=== PATIENT | female | born 1970 | race Caucasian/White ===

== ENCOUNTER → 2017-05-15 | Outpatient (CLI) | payer BC ==
--- NOTE | 2017-05-16 09:05 | MM ---
Reason for exam: screening (asymptomatic). Last mammogram was performed 1 year and 3 months ago. History: Patient is nulliparous. Family history of breast cancer in mother at age 70. Took hormonal contraceptives for 6 months beginning at age 18. Physical Findings: A clinical breast exam by your physician is recommended on an annual basis and results should be correlated with mammographic findings. MG Screening Mammo w CAD Bilateral CC and MLO view(s) were taken. Prior study comparison: February 01, 2016, bilateral MG screening mammo w CAD. November 05, 2014, bilateral MG screening mammo w CAD. The breast tissue is heterogeneously dense. This may lower the sensitivity of mammography. Layering calcifications. There is chronic nodularity bilaterally. There is no dominant lesion. No significant changes when compared with prior studies. ASSESSMENT: Benign, BI-RAD 2 RECOMMENDATION: Routine screening mammogram of both breasts in 1 year.
== END | disposition home or self-care (01) ==
LOC: RADMAMWWP 07:40
PROVIDERS: ATTEND Family Medicine
DX: Z12.31 Encounter for screening mammogram for malignant neoplasm of breast (principal)
CPT/HCPCS: 77067

== ENCOUNTER → 2018-09-03 | Outpatient (CLI) | payer BC ==
--- NOTE | 2018-09-03 14:28 | MM ---
Reason for exam: screening (asymptomatic). Last mammogram was performed 1 year and 4 months ago. History: Patient is nulliparous. Family history of breast cancer in mother at age 70. Took hormonal contraceptives for 6 months beginning at age 18. Physical Findings: A clinical breast exam by your physician is recommended on an annual basis and results should be correlated with mammographic findings. MG 3D Screening Mammo W/Cad Bilateral CC and MLO view(s) were taken. Prior study comparison: May 15, 2017, bilateral MG screening mammo w CAD. February 01, 2016, bilateral MG screening mammo w CAD. The breast tissue is heterogeneously dense. This may lower the sensitivity of mammography. Finding #1: There is a 15 mm equal density (isodense) mass in the upper outer quadrant, posterior position of the right breast. Finding #2: There are typically benign calcifications in both breasts. ASSESSMENT: Incomplete: need additional imaging evaluation, BI-RAD 0 RECOMMENDATION: Special view mammogram of the right breast. If lesion persists on supplemental views, image directed ultrasound is recommended. [facility] will attempt to contact patient to return for supplemental views and ultrasound if indicated.
== END | disposition home or self-care (01) ==
LOC: RADMAMWWP 07:35
PROVIDERS: ATTEND Family Medicine
DX: Z12.31 Encounter for screening mammogram for malignant neoplasm of breast (principal)
CPT/HCPCS: 77063; 77067

== ENCOUNTER → 2018-09-11 | Outpatient (CLI) | payer BC ==
--- NOTE | 2018-09-11 11:43 | MM ---
Reason for exam: additional evaluation requested from abnormal screening. Last mammogram was performed less than 1 month ago. History: Patient is nulliparous. Family history of breast cancer in mother at age 70. Took hormonal contraceptives for 6 months beginning at age 18. Physical Findings: Nurse did not find any significant physical abnormalities on exam. MG Work Up Mamm w CAD RT Spot compression CC, spot compression MLO, and ML view(s) were taken of the right breast. Prior study comparison: September 03, 2018, bilateral MG 3d screening mammo w/cad. May 15, 2017, bilateral MG screening mammo w CAD. The breast tissue is heterogeneously dense. This may lower the sensitivity of mammography. There are round, oval, circumscribed masses in the upper outer quadrant at middle and posterior depth x 3 measuring up to 1.8cm. These results were verbally communicated with the patient and result sheet given to the patient on 09/11/18. ASSESSMENT: Incomplete: need additional imaging evaluation, BI-RAD 0 RECOMMENDATION: Ultrasound of the right breast. (upper outer quadrant)
--- NOTE | 2018-09-11 11:47 | USB ---
Reason for exam: additional evaluation requested from abnormal screening. History: Patient is nulliparous. Family history of breast cancer in mother at age 70. Took hormonal contraceptives for 6 months beginning at age 18. US Breast Workup Limited RT Right limited breast ultrasound including focal area of concern, retroareolar and axilla demonstrates a 1.0 x 0.3 x 0.7cm cystic lesion at 11 o'clock, a 0.6 x 0.3 x 0.5cm cystic lesion at 11 o'clock, a 1.1 x 0.7 x 1.8cm cystic lesion at 11 o'clock, a 0.5 x 0.3 x 0.5cm cystic lesion at the axilla tail and a 1.0 x 0.3 x 0.6cm mixed lesion at 10 o'clock, complicated cyst with increase through transmission. Findings correlate with mammographic findings. These results were verbally communicated with the patient and result sheet given to the patient on 09/11/18. ASSESSMENT: Benign, BI-RAD 2 RECOMMENDATION: Return to routine screening mammogram schedule for both breasts.
== END | disposition home or self-care (01) ==
LOC: RADMAMWWP 08:58
PROVIDERS: ATTEND Family Medicine
DX: R92.8 Other abnormal and inconclusive findings on diagnostic imaging of breast (principal)
CPT/HCPCS: 77065

== ENCOUNTER → 2020-06-02 | Outpatient (CLI) | payer BC ==
--- NOTE | 2020-06-03 08:08 | BD ---
EXAMINATION TYPE: Axial Bone Density DATE OF EXAM: 06/02/2020 COMPARISON: NONE CLINICAL HISTORY: Height: 5 FT 5 IN Weight: 155 FRAX RISK QUESTIONS: Alcohol (3 or more units per day): NO Family History (Parent hip fracture): NO Glucocorticoids (More than 3mos): NO (Ex: prednisone, prednisolone, methylprednisolone, dexamethasone, and hydrocortisone). History of Fracture in Adulthood: NO Secondary Osteoporosis: 1. Type 1 Diabetes: NO 2. Hyperthyroidism: NO 3. Menopause before 45: NO 4. Malnutrition: NO 5. Chronic liver disease: NO Rheumatoid Arthritis: NO Current Tobacco Use: NO RISK FACTORS HISTORY OF: Surgery to Spine/Hip(right/left)/Wrist (right/left): NO Family History of Osteoporosis: YES Active: YES Diet low in dairy products/other sources of calcium: NO Postmenopausal woman: AGE 50 Take estrogen and/or progesterone medications: NONE Lost more than 2 inches in height since high school: NO MEDICATIONS: Thyroid Medications: YES Which medication: LEVOTHYROXINE How Lon YEARS Additional Medications: LEVOTHYROXINE, Additional History: EXAM MEASUREMENTS: Bone mineral densitometry was performed using the [employer] System. Bone mineral density as measured about the Lumbar spine is: ----- L1-L4(G/cm2): 1.097 T Score Values are as follows: ----- L2: -1.1 ----- L3: -0.5 ----- L4: -1.0 ----- L1-L4: -0.7 Bone mineral density has: DECREASED -6.4 % since study of: 2010 Bone mineral density about the R hip (g/cm2): 0.841 Bone mineral density about the L hip (g/cm2): 0.844 T Score values are as follows: -----R Neck: -1.4 -----L Neck: -1.4 -----R Total: -1.3 -----L Total: -1.1 Bone mineral density has: DECREASED -11.9 % since study of: 2010 IMPRESSION: Osteopenia (T Score between -2.5 and -1). There is slightly increased risk of fracture and the patient may be considered for treatment. Re-Screen 2-5 years. NOTE: T-SCORE=SD OF THE YOUNG ADULT MEAN.
--- NOTE | 2020-06-06 11:07 | MM ---
Reason for exam: screening (asymptomatic). Last mammogram was performed 1 year and 9 months ago. History: Patient is nulliparous. Family history of breast cancer in mother at age 70. Took hormonal contraceptives for 6 months beginning at age 18. Physical Findings: A clinical breast exam by your physician is recommended on an annual basis and results should be correlated with mammographic findings. MG 3D Screening Mammo W/Cad Bilateral CC and MLO view(s) were taken. Prior study comparison: September 11, 2018, right breast MG work up mamm w CAD RT. September 03, 2018, bilateral MG 3d screening mammo w/cad. The breast tissue is heterogeneously dense. This may lower the sensitivity of mammography. Finding: There are new round, grouped/clustered calcifications in the upper outer quadrant, posterior position of the left breast 8cm from the nipple. New finding since September 11, 2018 and September 03, 2018. ASSESSMENT: Incomplete: need additional imaging evaluation, BI-RAD 0 RECOMMENDATION: Special view mammogram of the left breast. [facility] will attempt to contact patient to return for supplemental views.
== END ==
LOC: RADMAMWWP 08:17
PROVIDERS: ATTEND Family Medicine
DX: M85.80 Other specified disorders of bone density and structure, unspecified site (principal); Z80.3 Family history of malignant neoplasm of breast; R92.0 Mammographic microcalcification found on diagnostic imaging of breast
CPT/HCPCS: 77063; 77067; 77080

== ENCOUNTER → 2020-06-14 | Outpatient (CLI) | payer BC ==
--- NOTE | 2020-06-15 11:04 | MM ---
Reason for exam: additional evaluation requested from abnormal screening. Last mammogram was performed less than 1 month ago. History: Patient is nulliparous. Family history of breast cancer in mother at age 70. Took hormonal contraceptives for 6 months beginning at age 18. Physical Findings: Nurse did not find any significant physical abnormalities on exam. MG 3D Work Up W/Cad LT CC with magnification, LM with magnification, and LM view(s) were taken of the left breast. Prior study comparison: June 02, 2020, bilateral MG 3d screening mammo w/cad. September 03, 2018, bilateral MG 3d screening mammo w/cad. The breast tissue is heterogeneously dense. This may lower the sensitivity of mammography. Finding: There are grouped/clustered, fine calcifications in the upper outer quadrant of the left breast 8cm from the nipple. New finding since September 03, 2018. These results were verbally communicated with the patient and result sheet given to the patient on 06/14/20. ASSESSMENT: Suspicious, BI-RAD 4 RECOMMENDATION: Stereotactic core biopsy of the left breast. Called Dr. Alcaraz's office with mammographic findings and has scheduled an appointment for the patient for 08/03/20 at 4:[address] Yanez. Biopsy scheduled for 07/04/20 at 10:00. PRELIMINARY REPORT CALLED AND FAXED TO DR. YANEZ ON 06/15/20.
== END ==
LOC: RADMAMWWP 13:32
PROVIDERS: ATTEND Family Medicine
DX: R92.8 Other abnormal and inconclusive findings on diagnostic imaging of breast (principal)
CPT/HCPCS: 77061; 77065

== ENCOUNTER → 2020-07-11 | Day surgery (SDC) | payer BC ==
[2020-07-11 09:19] VITALS: BP 130/80; PULSE 81; RESP 16; TEMP 97.6
--- NOTE | 2020-07-11 11:49 | MM ---
Stereotactic Mammotome core biopsy left breast. HISTORY: Microcalcifications The Microcalcifications in question within the left breast were targeted by the undersigned. Procedu re was performed by the undersigned. Informed consent was obtained and all of the patients questions were answered. The standard sterile technique was utilized and appropriate local anesthesia was obta ined with 1% lidocaine. Mammotome probe was advanced and multiple core samples were obtained and sen t to pathology for interpretation. Microclip marker was deployed at the site of biopsy. Post proced ural mammogram demonstrates appropriate deployment of radiopaque clip marker. The patient tolerated the procedure well and left the department in stable condition. Pathology results are pending. IMPRESSION: Successful stereotactic core biopsy left breast with pathology results pending.
== END ==
LOC: RADMAMWWP 09:03
PROVIDERS: ATTEND Surgery
DX: R92.8 Other abnormal and inconclusive findings on diagnostic imaging of breast (principal); N62 Hypertrophy of breast
CPT/HCPCS: 88305; 88342; 88341; 19081; A4648; J2001

== ENCOUNTER 2020-07-28 10:37 | Day surgery (SDC) | payer BC ==
[2020-07-26 08:20] VITALS: BMI 25.7
[~2020-07-28 10:37] MED LIST: ACETAMINOPHEN TAB 500 MG TAB PO PRN; HEPARIN SODIUM,PORCINE/PF 5,000 UNIT/0.5 ML SYRINGE SQ PRN; Pre Op ABX Message 1 EACH MISC MISCELLANE ONE
[2020-07-28] MEDS ORDERED: ONDANSETRON 4 MG/2 ML VIAL ONE (11:16)
[2020-07-28] MEDS ORDERED: ALPRAZolam 0.5 MG TAB ONE (11:16)
[2020-07-28] MEDS ORDERED: ALPRAZolam 0.5 MG TAB PO ONE (11:18)
[2020-07-28] MEDS ORDERED: LACTATED RINGERS 1,000 ML IV ONE (11:18)
[2020-07-28] MEDS ORDERED: LIDOCAINE 1% INJ 10MG/ML (20 ML MDV) SQ ONE (12:00)
[2020-07-28] MEDS ORDERED: DEXAMETHASONE SOD PHOSPHATE 4 MG/ML 1 ML VIAL IV ONE (12:37)
[2020-07-28] MEDS ORDERED: MIDAZOLAM 2 MG/2 ML VIAL ONE (12:56)
[2020-07-28] MEDS ORDERED: ePHEDrine SULFATE/0.9% NACL/PF 50 MG/5 ML SYRINGE IV ONE (12:56)
[2020-07-28] MEDS ORDERED: PROPOFOL 10 MG/ML 20 ML VIAL IV ONE (12:56)
[2020-07-28] MEDS ORDERED: LIDOCAINE 1% INJ 10MG/ML (20 ML MDV) ONE (12:56)
[2020-07-28] MEDS ORDERED: fentaNYL (PF) 50 MCG/ML 2 ML AMP ONE (12:56)
[2020-07-28] MEDS ORDERED: BUPIVACAIN-EPI 0.5%-1:200,000 30 ML VIAL SQ ONE ×2 (12:58)
[2020-07-28] MEDS ORDERED: NALOXONE 0.4 MG/ML 1 ML VIAL IV PRN (13:56)
[2020-07-28] MEDS ORDERED: HYDROcodone/APAP 5-325MG 1 EACH TAB PO PRN (13:56)
--- NOTE | 2020-07-28 13:59 | P.OP ---
Date of Procedure: 07/28/20 Procedure(s) Performed: PREOPERATIVE DIAGNOSIS: Abnormal left mammogram POSTOPERATIVE DIAGNOSIS: Same PROCEDURE: Left Breast wire localization biopsy SURGEON: Renata EBL: Minimal ANESTHESIA: Sedation plus local COMPLICATIONS: None OPERATIVE PROCEDURE: Patient was placed on the operating room table in the sup ine position. The patient's breast was prepped and draped in usual sterile fashion. A curvilinear incision was made adjacent to the wire entrance site. I followed the wire down into the breast tissue. The breast tissue around the tip of the wire was fully excised using electrocautery. The specimen was painted the appropriate 6 colors. The specimen was sent for specimen radiogram. The clip was present within the specimen. The subcutaneous tissues were inspected. No bleeding was seen. The subcutaneous tissues were closed using 3-0 Vicryl sutures. The skin was closed using a running 4-0 Monocryl stitch. Skin glue and sterile dressings were applied. DISPOSITION: Stable to recovery room
[2020-07-28 14:13] VITALS: TEMP 97.3
[2020-07-28] MEDS ORDERED: SODIUM CHLORIDE 0.9% 1,000 ML IV ONE (14:32)
[2020-07-28 14:51] VITALS: RESP 18
[2020-07-28 14:59] VITALS: BP 120/75; PULSE 82
--- NOTE | 2020-07-29 15:18 | MM ---
EXAMINATION TYPE: MG pre op needle loc LT, MG surgical specimen LT DATE OF EXAM: 07/28/2020 12:29 PM COMPARISON: NONE HISTORY: ABNORMAL MAMM R92.8 Informed consent was obtained and all the patient's questions were answered. The clip in question was localized mammographically. The standard sterile technique was utilized, as well as appropriate local anesthesia with 1% Lidocaine. Localization needle followed by placement of a guidewire was performed under mammographic guidance. Verification images demonstrate appropriate deployment of the guidewire. The patient tolerated the procedure well and left the department in stable condition. Specimen radiograph demonstrates the clip in question to reside within the specimen. IMPRESSION: Successful needle localization and open biopsy left breast with pathology results pending . Pathology Results: High Risk LEFT BREAST, LUMPECTOMY: Focal residual flat epithelial atypia (see note). Biopsy site change with fibrosis, acute and chronic inflammation and fat necrosis. Fibrocystic change, columnar cell change and focal microcalcification present. Negative for diagnostic in situ or invasive carcinoma. All margins benign and negative for lesion. Recommendation Follow up mammogram of the left breast in 6 months. STACIE
== END 2020-07-28 15:10 | disposition home or self-care (01) ==
LOC: OR 10:37
PROVIDERS: ATTEND Surgery
DX: N60.32 Fibrosclerosis of left breast (principal); N61.0 Mastitis without abscess; N64.1 Fat necrosis of breast; N60.12 Diffuse cystic mastopathy of left breast; R92.0 Mammographic microcalcification found on diagnostic imaging of breast; E07.9 Disorder of thyroid, unspecified; Z98.890 Other specified postprocedural states; Z80.3 Family history of malignant neoplasm of breast; Z80.0 Family history of malignant neoplasm of digestive organs; Z79.890 Hormone replacement therapy
CPT/HCPCS: 81025; 88307; 76098; 19281; 19125; J2250; J1100; J2405; J2001; J3010; J2704; J1644

== ENCOUNTER → 2020-12-05 | Outpatient (CLI) | payer BC | END | disposition home or self-care (01) | LOC: RADMAMWWP 08:06 | PROVIDERS: ATTEND Surgery | DX: Z53.9 Procedure and treatment not carried out, unspecified reason (principal) ==

== ENCOUNTER → 2021-02-15 | Outpatient (CLI) | payer BC ==
--- NOTE | 2021-02-16 10:19 | MM ---
Reason for exam: follow-up at short interval from prior study. Last mammogram was performed 8 months ago. History: Patient has history of breast cancer at age 50, has history of high-risk lesion on a previous biopsy at age 50, and is nulliparous. Family history of breast cancer in mother at age 70. High risk MG pre op needle loc LT of the left breast, July 28, 2020. Lumpectomy of the left breast, July 28, 2020. Malignant MG stereo VAD BX LT of the left breast, July 11, 2020. Took hormonal contraceptives for 6 months beginning at age 18. Physical Findings: Nurse did not find any significant physical abnormalities on exam. MG 3D Diag Mammo W/Cad LT CC and MLO view(s) were taken of the left breast. Prior study comparison: June 02, 2020, bilateral MG 3d screening mammo w/cad. September 03, 2018, bilateral MG 3d screening mammo w/cad. The breast tissue is heterogeneously dense. This may lower the sensitivity of mammography. These results were verbally communicated with the patient and result sheet given to the patient on 02/15/21. ASSESSMENT: Probably benign, BI-RAD 3 RECOMMENDATION: Follow-up diagnostic mammogram of both breasts in 4 months. Back on schedule for May 2021.
== END | disposition home or self-care (01) ==
LOC: RADMAMWWP 10:13
PROVIDERS: ATTEND Surgery
DX: R92.2 Inconclusive mammogram (principal); Z85.3 Personal history of malignant neoplasm of breast; Z80.3 Family history of malignant neoplasm of breast
CPT/HCPCS: 77061; 77065

== ENCOUNTER 2021-03-04 08:17 | Emergency (ER) | payer BC ==
[2021-03-04 08:26] VITALS: RESP 18; TEMP 97.9
[2021-03-04] MEDS ORDERED: DIPH,PERTUS(ACELL)TETVAC-LF 0.5 ML VIAL IM ONE (08:37)
[2021-03-04] MEDS ORDERED: GELATIN SPONGE,ABSORB (SMALL) 1 EACH SPONGE TOPICAL STA (08:40)
--- NOTE | 2021-03-04 09:10 | ED ---
Upper Extremity HPI - General Chief Complaint: Extremity Injury, Upper Stated Complaint: Finger lac Time Seen by Provider: 03/04/21 08:28 Source: patient, RN notes reviewed Mode of arrival: ambulatory Limitations: no limitations - History of Present Illness Initial Comments: This a 51-year-old female presents emergency with chief complaint laceration to right hand or digit. 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 Patient states that she is unsure when her last tetanus was. She complains of mild discomfort, bleeding and distal portion her finger she states there is portion that is missing. Patient has no paresthesias patient offers no complaints. - Related Data Home Medications Medication Instructions Recorded Confirmed Cholecalciferol (Vitamin D3) 125 mcg PO DAILY 06/29/20 07/26/20 [Vitamin D3 (5000 Iu)] Levothyroxine Sodium 125 mcg PO DAILY 06/29/20 07/26/20 Multivitamin/Iron/Folic Acid 1 tablet PO DAILY 06/29/20 07/26/20 [Centrum Women Tablet] Vitamin B Complex 1 tablet PO DAILY 06/29/20 07/26/20 Previous Rx's Medication Instructions Recorded oxyCODONE HCL [OxyIR] 5 mg PO Q6H PRN 3 Days #5 tab 07/28/20 Cephalexin [Keflex] 500 mg PO Q8HR #21 cap 03/04/21 Allergies Allergy/AdvReac Type Severity Reaction Status Date / Time No Known Allergies Allergy Verified 03/04/21 08:26 Review of Systems ROS Statement: Those systems with pertinent positive or pertinent negative responses have been documented in the HPI. ROS Other: All systems not noted in ROS Statement are negative. Past Medical History Past Medical History: Thyroid Disorder Additional Past Medical History / Comment(s): LUMP IN LEFT BREAST History of Any Multi-Drug Resistant Organisms: None Reported Past Surgical History: Breast Surgery Additional Past Surgical History / Comment(s): tongue biopsy 2010. LT BREAST CORE BX Past Anesthesia/Blood Transfusion Reactions: No Reported Reaction Past Psychological History: No Psychological Hx Reported Smoking Status: Never smoker Past Alcohol Use History: None Reported Past Drug Use History: None Reported - Past Family History Mother Family Medical History: Cancer Additional Family Medical History / Comment(s): breast cancer Brother(s) Family Medical History: Cancer Additional Family Medical History / Comment(s): tongue General Exam Limitations: no limitations General appearance: alert, in no apparent distress Head exam: Present: atraumatic, normocephalic, normal inspection Respiratory exam: Present: normal lung sounds bilaterally. Absent: respiratory distress, wheezes, rales, rhonchi, stridor Cardiovascular Exam: Present: regular rate, normal rhythm, normal heart sounds. Absent: systolic murmur, diastolic murmur, rubs, gallop, clicks Extremities exam: Present: other (Right hand third digit there is a laceration involving the distal portion through the nail finger there is mild bleeding, patient's full range of motion of the digit.) Course Vital Signs 03/04/21 08:23 Temperature 97.9 F Pulse Rate 72 Respiratory 18 Rate Blood Pressure 131/90 O2 Sat by Pulse 100 Oximetry Medical Decision Making - Medical Decision Making Finger was thoroughly cleaned, x-ray shows no acute fracture patient did have Gelfoam applied along with tube gauze. Patient has skin avulsion with no closure at this time. She will follow up with hand surgery for recheck and possible revision. Disposition Clinical Impression: Laceration of finger, right, Avulsion of skin of finger Disposition: HOME SELF-CARE Condition: Stable Instructions (If sedation given, give patient instructions): Skin Avulsion (ED) Additional Instructions: Please return to the Emergency Department if symptoms worsen or any other c oncerns. Please leave bandage on until follow-up with orthopedics. Prescriptions: Cephalexin [Keflex] 500 mg PO Q8HR #21 cap Is patient prescribed a controlled substance at d/c from ED?: No Referrals: Noe Alcaraz DO [Primary Care Provider] - 1-2 days Time of Disposition: 09:09
--- NOTE | 2021-03-04 09:27 | XR ---
Right finger. HISTORY: Laceration COMPARISON: None. TECHNIQUE: 3 views the right middle finger were obtained. FINDINGS: There is no fracture, dislocation intraosseous or intra-articular abnormality. There is no radiopaque foreign body or abnormal soft tissue calcification. IMPRESSION: No significant abnormality seen.
[2021-03-04] MEDS ORDERED: ACET/COD 300 MG/30 MG STARTER PACK 6 TAB BTL PO STA (09:48)
[2021-03-04 09:55] VITALS: BP 134/86; PULSE 74
== END 2021-03-04 09:54 | disposition home or self-care (01) ==
LOC: EC 08:17
DX: S61.212A Laceration without foreign body of right middle finger without damage to nail, initial encounter (principal); E07.9 Disorder of thyroid, unspecified; Z79.890 Hormone replacement therapy; Z23 Encounter for immunization; W23.0XXA Caught, crushed, jammed, or pinched between moving objects, initial encounter; Y93.G9 Activity, other involving cooking and grilling
CPT/HCPCS: 90471; 90715; 99283

== ENCOUNTER → 2021-06-05 | Outpatient (CLI) | payer BC ==
--- NOTE | 2021-06-07 13:56 | MM ---
Reason for exam: additional evaluation requested from prior study. Last mammogram was performed 4 months ago. History: Patient is postmenopausal, has history of high-risk lesion on a previous biopsy at age 50, and is nulliparous. Family history of breast cancer in mother at age 70. High risk MG pre op needle loc LT of the left breast, July 28, 2020. Lumpectomy of the left breast, July 28, 2020. High risk MG stereo VAD BX LT of the left breast, July 11, 2020. Took hormonal contraceptives for 6 months beginning at age 18. Physical Findings: A clinical breast exam by your physician is recommended on an annual basis and results should be correlated with mammographic findings. MG 3D Diag Mammo W/Cad GEOFFREY Bilateral CC and MLO view(s) were taken. Prior study comparison: February 15, 2021, left breast MG 3d diag mammo w/cad LT. June 14, 2020, left breast MG 3d work up w/cad LT. June 02, 2020, bilateral MG 3d screening mammo w/cad. September 03, 2018, bilateral MG 3d screening mammo w/cad. May 15, 2017, bilateral MG screening mammo w CAD. The breast tissue is heterogeneously dense. This may lower the sensitivity of mammography. Post surgical change upper outer quadrant left breast, 6 month follow up recommended. Asymmetric densities right upper outer quadrant with some underlying nodularity on 3D images. This seems to have been present on priors but slightly more pronounced now. ASSESSMENT: Incomplete: need additional imaging evaluation, BI-RAD 0 RECOMMENDATION: Ultrasound of the right breast. (upper outer quadrant)
--- NOTE | 2021-06-07 13:58 | USB ---
Reason for exam: additional evaluation requested from abnormal screening. History: Patient is postmenopausal, has history of high-risk lesion on a previous biopsy at age 50, and is nulliparous. Family history of breast cancer in mother at age 70. High risk MG pre op needle loc LT of the left breast, July 28, 2020. Lumpectomy of the left breast, July 28, 2020. High risk MG stereo VAD BX LT of the left breast, July 11, 2020. Took hormonal contraceptives for 6 months beginning at age 18. Physical Findings: A clinical breast exam by your physician is recommended on an annual basis and results should be correlated with mammographic findings. US Breast Limited RT Right limited breast ultrasound including focal area of concern, retroareolar and axilla demonstrates a 0.8 x 0.5 x 0.2cm oval, cystic lesion at 10 o'clock, flattened cyst surrounded by dense tissue and a 0.7 x 0.8 x 0.5cm oval, lobular cyst at 11 o'clock with some internal artifact or debris. Scanned 9-12 o'clock. ASSESSMENT: Probably benign, BI-RAD 3 RECOMMENDATION: Follow-up diagnostic mammogram of both breasts in 6 months.
== END | disposition home or self-care (01) ==
LOC: RADMAMWWP 12:57
PROVIDERS: ATTEND Surgery
DX: R92.8 Other abnormal and inconclusive findings on diagnostic imaging of breast (principal)
CPT/HCPCS: 77062; 77066

== ENCOUNTER → 2023-08-28 | Outpatient (CLI) | payer BC ==
--- NOTE | 2023-09-03 11:57 | MM ---
Reason for Exam: Screening (asymptomatic). Last mammogram was performed 2 year(s) and 3 month(s) ago. Patient History: Menarche at age 12. Patient has no children. Postmenopausal. Hormonal Contraceptives for 6 months starting at age 18. 07/28/2020, Lumpectomy on the Left side. 07/28/2020, High risk Core Biopsy on the left side. 07/11/2020, High risk Core Biopsy on the left side. Mother had breast cancer, age 70. Risk Values: Eliza 5 year model risk: 3.2%. NCI Lifetime model risk: 23.0%. Prior Study Comparison: 06/14/2020 Left Diagnostic Mammogram, [facility]. 02/15/2021 Left Diagnostic Mammogram, [facility]. 06/05/2021 Bilateral Diagnostic Mammogram, [facility]. Tissue Density: The breasts are heterogeneously dense, which may obscure small masses. Findings: Analyzed By CAD. Left breast surgical clips. Right breast: There is no suspicious group of microcalcifications or new suspicious mass. Left breast: There is no suspicious group of microcalcifications or new suspicious mass. Overall Assessment: Benign, BI-RAD 2 Management: Screening Mammogram of both breasts in [address] [facility] will attempt to contact patient to return for supplemental views and ultrasound if indicated. Patient should continue monthly self-breast exams. A clinical breast exam by your physician is recommended on an annual basis. This exam should not preclude additional follow-up of suspicious palpable abnormalities. Note on Eliza scores and lifetime risk: 1. A Eliza score greater than 3% is considered moderate risk. If this is the case, consider specialist referral to assess eligibility for a risk reducing agent. 2. If overall lifetime risk for the development of breast cancer is 20% or higher, the patient may qualify for future screening with alternating mammogram and breast MRI. Electronically signed and approved by: Noe William DO
== END | disposition home or self-care (01) ==
LOC: RADMAMWWP 13:53
PROVIDERS: ATTEND Family Medicine
DX: Z12.31 Encounter for screening mammogram for malignant neoplasm of breast (principal); Z80.3 Family history of malignant neoplasm of breast; Z78.0 Asymptomatic menopausal state
CPT/HCPCS: 77063; 77067